=== PATIENT | male | born 1955 | race Caucasian/White ===

== ENCOUNTER 2017-03-18 09:50 | Emergency (ER) | payer BC ==
[2017-03-20] MEDS ORDERED: COREG6.25 MG PO (14:56)
[2017-03-20] MEDS ORDERED: VOLTAREN75 MG PO (14:57)
[2017-03-20] MEDS ORDERED: HYDROCODONE-APA1 TAB PO (14:57)
[2017-03-20] MEDS ORDERED: NORVASC5 MG PO (14:58)
[2017-03-20] MEDS ORDERED: LIPITOR40 MG PO (14:58)
[2017-03-20] MEDS ORDERED: ACCUPRIL5 MG PO (14:58)
[2017-03-23] MEDS ORDERED: BAYER CHEWABLE81 MG PO (14:06)
[2017-03-23] MEDS ORDERED: NIASPAN500 MG PO (14:06)
== END 2017-03-18 13:44 | disposition home or self-care (01) ==
LOC: D.ER 09:50
DX: S52.121A Displaced fracture of head of right radius, initial encounter for closed fracture (principal); W11.XXXA Fall on and from ladder, initial encounter; Y93.89 Activity, other specified; Y92.029 Unspecified place in mobile home as the place of occurrence of the external cause; S52.602A Unspecified fracture of lower end of left ulna, initial encounter for closed fracture; S52.502A Unspecified fracture of the lower end of left radius, initial encounter for closed fracture; S01.81XA Laceration without foreign body of other part of head, initial encounter

== ENCOUNTER 2017-03-24 10:27 | Day surgery (SDC) | payer BC ==
[2017-03-23 14:16] VITALS: BMI 26.7
[2017-03-23 14:26] LABS: HEMATOCRIT 38.2 % (42.0-54.0); HEMOGLOBIN 12.5 g/dL (13.5-17.5); MCH 30.4 pg (26.0-34.0); MCHC 32.7 g/dL (31.0-37.0); MCV 92.9 fL (80.0-100.0); MEAN PLATELET VOLUME 9.3 fL (7.4-10.4); RBC 4.11 10x6/uL (4.20-6.10); RDW 13.5 % (11.5-14.5); WBC 8.9 10x3/uL (4.8-10.8)
[2017-03-23 15:17] LABS: CALC OSMOLALITY 276 mosm/kg (275-300); CALCIUM 8.5 mg/dL (8.5-10.1); CARBON DIOXIDE 29.7 mmol/L (21.0-32.0); CHLORIDE - SERUM 104 mmol/L (98-107); CREATININE - SERUM 0.7 mg/dL (0.6-1.3); GLUCOSE 93 mg/dL (74-106); POTASSIUM - SERUM 4.1 mmol/L (3.5-5.1); SODIUM 140 mmol/L (136-145); UREA NITROGEN 8 mg/dL (7-18); eGFR NON AFRICAN AMERICAN > 90 mL/min (90-120)
[~2017-03-24 10:27] MED LIST: ACCUPRIL5 MG PO; BAYER CHEWABLE81 MG PO; COREG6.25 MG PO; HYDROCODONE-APA1 TAB PO; LIPITOR40 MG PO; NIASPAN500 MG PO; NORVASC5 MG PO; VOLTAREN75 MG PO
[2017-03-24 11:29] VITALS: BP 138/85; BMI 26.7
--- NOTE | 2017-03-24 15:00 | NUR ---
PT REC'D FROM PACU VIA STRETCHER. AWAKE, ALERT, ORIENTED. DRESSING TO LEFT WRIST C/D/I, ICE BAG IN PLACE. PT ABLE TO WIGGLE FINGERS. SLING IN PLACE. LEMON [place] GAM[place] SODA PROVIDED.
--- NOTE | 2017-03-24 15:30 | NUR ---
FULL LIQ TRAY PROVIDED AND TOLERATED.
[2017-03-24] MEDS ORDERED: DILAUDID2 MG PO (15:40)
--- NOTE | 2017-03-24 16:10 | NUR ---
VSS. IV D/C'D CATH INTACT RIGHT WRIST.
--- NOTE | 2017-03-24 16:35 | NUR ---
D/C INSTRUCTIONS EXPLAINED TO PT. VOICED UNDERSTANDING. COPIES OF ALL GIVEN, WELL WRITTEN RX FOR DILAUDID PER DR. DE LOS SANTOS. LEFT ARM REMAINS IN SLING WITH ICE IN PLACE.
--- NOTE | 2017-03-24 16:40 | NUR ---
D/C'D HOME VIA W/C TO PRIVATE CAR.
--- NOTE | 2017-04-24 10:54 | OP ---
PATIENT NAME: MCKINLEY LOPEZ MEDICAL RECORD: [id number] :59 LOCATION:[facility] ADMISSION DATE: SURGEON: ELGIN DE LOS SANTOS MD DATE OF OPERATION: 03/24/2017 PREOPERATIVE DIAGNOSES: Displaced left distal radius fracture. POSTOPERATIVE DIAGNOSIS: Displaced left distal radius fracture. PROCEDURE: Open reduction internal fixation of displaced left distal radius fracture. SURGEON: Elgin De Los Santos MD ANESTHESIA: General. INTRAOPERATIVE COMPLICATIONS: None. SUMMARY OF PATHOLOGIC FINDINGS: Consistent with preoperative diagnosis. The patient had distal radius fracture that required operative fixation. OPERATIVE SUMMARY IN DETAIL: After obtaining the appropriate preoperative orthopedic surgery consent as well as anesthetic consultation, evaluation and clearance, the patient was brought to the operating room and placed on the operating table in supine position. After adequate general laryngeal mask airway was administered, tourniquet was placed about the proximal aspect of the left upper extremity. Left upper extremity was then prepped and draped in routine sterile fashion. The arm was elevated and exsanguinated, tourniquet inflated to 350 mmHg. Routine curvilinear incision was made, taken down to the level of the flexor carpi radialis used as a landmark. Dissection was then carried deeper. The wrist capsule was identified. Pronator quadratus was then removed for application of the plate. Under direct fluoroscopic visualization, reduction maneuver was performed. The plate was affixed. Serial and sequential drill and fill using combination of both locking and nonlocking screws were used for the Juliette VariAx fixation plate. Having completed this, final x-rays were taken in both AP and lateral planes and submitted for radiologist review. The wound was copiously irrigated and closed with 2-0 Vicryl followed by 4-0 Prolene in running fashion. Sterile dressings were applied. A volar splint was applied. The patient was awakened, taken to recovery room in stable condition. All final needle and sponge counts were correct. TRANSINT:[id number] Voice Confirmation ID: [id number] DOCUMENT ID: [id number] ELGIN DE LOS SANTOS MD at 1054 CC: [id number] DICTATION DATE: 04/20/17 1301 [facility]: 04/20/17 1320 [facility] 03/24/17 [place] [address]
== END 2017-03-24 16:40 | disposition home or self-care (01) ==
LOC: D.OPS 10:27
PROVIDERS: Anesthesiology
DX: S62.92XA Unspecified fracture of left hand, initial encounter for closed fracture (principal); Z95.1 Presence of aortocoronary bypass graft; S52.121A Displaced fracture of head of right radius, initial encounter for closed fracture; W11.XXXA Fall on and from ladder, initial encounter; Z01.812 Encounter for preprocedural laboratory examination